=== PATIENT | female | born 2000 | race Caucasian/White ===

== ENCOUNTER 2024-09-09 18:00 | Emergency (ER) | payer OTHER, SELFPAY ==
[2024-09-09 18:04] VITALS: BP 154/93
--- NOTE | 2024-09-09 19:26 | ED.GENMED ---
History of Present Illness
General
Chief Complaint: Cold/Flu/URI Symptoms
Source: patient and family
Time Seen by Provider: 09/09/24 19:13
History of Present Illness
History of Present Illness:
24-year-old female with no significant past medical history presenting to the emergency department for evaluation after she started developing fevers on Tuesday evening which developed into sore throat, cough, body aches, fatigue, side pain on the
left, 1 episode of vomiting yesterday and diminished p.o. intake. Patient went to her primary care on Tuesday where they felt her symptoms were likely viral. Patient did 2 COVID test at home which were negative and at the primary care's office they
did a flu test which was negative. She has had fevers with Tmax of around 103. Last dose of Tylenol today was around 4 PM. No known sick contacts, recent travel or recent antibiotics.
Past History
Past History
ED Past Medical History: None
ED Past Surgical History: None
Social History
Tobacco: Non-smoker
Alcohol: None
Drug: None
Personal: Single
Living: with family
Review of Systems
Review of Systems
All Other Systems: ROS reviewed and negative except as documented in HPI and ROS
Phy Exam
Physical Exam
Physical Exam:
GENERAL: Alert , in no apparent distress
HEAD: NCAT
EYE: conjunctiva clear
NECK: Supple, no significant adenopathy.
ENT: mmm.
CARDIAC: Tachycardic rate and rhythm
LUNGS: Clear breath sounds bilaterally, no acute respiratory distress, no wheezes/rales/rhonchi
NEUROLOGICAL: Alert and oriented
SKIN: Hot to the touch and dry, skin intact.
MUSCULOSKELETAL: well perfused.
PSYCH: Normal and appropriate interaction.
Scores
Heart Failure Risk
Heart Failure Risk Score: Not Applicable
Heart Score for Chest Pain Patients
STEMI patient?: Not applicable
Withdrawal Assessment of Alcohol
Withdrawal Assessment Completed?: Not applicable
Course
Orders/Labs/Results
Orders:
Orders
09/09/24 18:08
Electrocardiogram (*1) Urgent
Reason for Study: Chest Pain
EKG- Treatment ONCE
09/09/24 19:14
Ibuprofen [Motrin] 600 mg PO NOW STA
Test Result ONCE
09/09/24 19:33
CR Chest - 2 Views Urgent
Comment:
Reason For Exam: cough, fever
09/09/24 19:38
Complete Blood Count/With Diff Urgent
Comprehensive Metabolic Panel Urgent
HCG, Serum Qualitative Screen Urgent
Monotest Urgent
Rapid Strep Group A Urgent
JOANNE Source: Throat/Pharynx
Specimen Description:
Date Specimen was Collected: 09/09/24
Time Specimen was Collected: 19:31
09/09/24 21:00
Doxycycline [Vibramycin] 100 mg PO NOW STA
Abnormal Lab Results
09/09/24
19:38
RBC 4.01 L 10^6/uL
(4.20-5.40)
Hct 35.3 L %
(37.0-47.0)
MCH 32.7 H pg
(27.0-31.0)
MCHC 37.1 H g/dL
(33.0-37.0)
RDW 11.2 L %
(11.5-14.5)
MPV 10.8 H fL
(7.4-10.4)
Abs Immat Gran (auto) 0.1 H 10^3/uL
(0-0.05)
Absolute Lymphs (auto) 0.6 L 10^3/uL
(1.2-3.4)
Immature Gran % 1.5 H %
(0-0.5)
Neutrophils % 84.6 H %
(42.2-75.2)
Lymphocytes % 9.8 L %
(20.5-51.1)
Potassium 3.3 L mmol/L
(3.5-5.1)
BUN 6 L mg/dl
(7-17)
Glucose 149 H mg/dl
(70-99)
09/09/24 19:38
09/09/24 19:38
Vital Signs
Initial and Last Documented VS:
Initial Vital Signs
Temp Pulse Resp BP Pulse Ox
102 F H 134 18 154/93 96
09/09/24 18:04 09/09/24 18:04 09/09/24 18:04 09/09/24 18:04 09/09/24 18:04
Last Documented Vital Signs
Temp Pulse Resp BP Pulse Ox
99.4 F 83 18 111/78 95
09/09/24 20:34 09/09/24 21:16 09/09/24 21:16 09/09/24 21:12 09/09/24 21:16
MDM/Problems Addressed
Differential Diagnosis Includes:
[place], COVID/flu, pneumonia, strep
MDM/Problems Addressed:
24-year-old female presenting to the emergency department for evaluation of fever and upper respiratory/viral-like symptoms since Tuesday evening. PCP performed viral testing at office which was negative. No other medications provided. Patient
febrile here. Exam otherwise reassuring. Will check labs including mono, strep test ordered. Motrin ordered for fever. Disposition pending
*Radiology
Radiology exam reviewed: preliminary read by ED provider (Left lower lobe pneumonia)
*Critical Care Note
Total Time (30-74mins, 75-104mins- exclusive of procedures): Not Applicable
Patient Management
Social determinants of health affecting care: Living situation and Strong social support
Escalation/DeEscalation of care consider admission/obs:
Patient's labs are reassuring. Chest x-ray does show a left lower lobe pneumonia. Vital signs much improved following Motrin. Will treat for community-acquired pneumonia with doxycycline. Motrin and Tylenol to be continued as needed for fevers.
Patient aware of return precautions to the ER. Stable for discharge home.
ED Attending Note
-
Portions of this chart may have been created with voice recognition software.� Occasional wrong word or��sound alike� substitutions may have occurred due to the inherent limitations of voice recognition software.
Discharge Plan
Departure
Patient Disposition: Home (Routine Discharge)
Date of Disposition: 09/09/24
Time of Disposition: 21:01
Patient with high blood pressure during this ER visit?: Yes
Discharge Problem:
Pneumonia
Instructions: Pneumonia
Prescriptions:
New
doxycycline hyclate 100 mg tablet
100 mg PO BID Qty: 19 0RF
No Action
fexofenadine-pseudoephedrine [Zunilda-D 24 Hour] 1 EACH tablet extended release 24 hr
1 ea PO DAILYPRN PRN (Reason: allergies)
Referrals:
Divya Gutiérrez PA-C [Family Provider] -
Stand Alone Forms: Return to Work
Interventions
Interventions:
*Risk Screen - Suicide Last Done: 09/09/24 18:04
*General Assessment Last Done: 09/09/24 18:04
*Neglect/Abuse Screening Last Done: 09/09/24 19:42
ED- Fall Risk Assessment Last Done: 09/09/24 21:17
*ED COVID-19 Vaccine History Last Done: 09/09/24 19:42
*Nursing Disposition Last Done: 09/09/24 21:17
ED- Pulmonary Assessment Last Done: 09/09/24 19:41
Discharge Date and Time
Discharge Date/Time: 09/09/24 21:17
Print Language: AZERI
[2024-09-09] MEDS: MOTRIN 600 MG PO (19:30)
[2024-09-09 19:57] LABS: Monotest Negative (Negative)
[2024-09-09 20:04] LABS: HCG, Serum Qualitative Screen Negative
[2024-09-09 20:08] LABS: ALT (SGPT) 20 U/L (0-35); AST (SGOT) 31 U/L (14-36); Albumin 4.4 g/dl (3.5-5.0); Alkaline Phosphatase 56 U/L (38-126); Blood Urea Nitrogen 6 mg/dl (7-17); Calcium 9.1 mg/dl (8.4-10.2); Carbon Dioxide 23 mmol/L (22-30); Chloride 102 mmol/L (98-107); Glucose 149 mg/dl (70-99); Potassium 3.3 mmol/L (3.5-5.1); Sodium 139 mmol/L (135-145); Total Bilirubin 0.5 mg/dl (0.2-1.3); Total Protein 7.1 g/dl (6.3-8.2); eGFR > 60.00
[2024-09-09 20:16] LABS: % Basophils 0.2 % (0-2); % Immature Granulocytes 1.5 % (0-0.5); % Lymphocytes 9.8 % (20.5-51.1); % Monocytes 3.9 % (1.7-9.3); % Neutrophils 84.6 % (42.2-75.2); Absolute Immature Granulocytes 0.1 10^3/uL (0-0.05); Absolute Lymphocytes 0.6 10^3/uL (1.2-3.4); Absolute Monocytes 0.2 10^3/uL (0.1-0.6); Absolute Neutrophils 5.2 10^3/uL (1.4-6.5); Hematocrit 35.3 % (37.0-47.0); Hemoglobin 13.1 g/dL (12.0-16.0); Mean Corp Hgb Conc. 37.1 g/dL (33.0-37.0); Mean Corpuscular Hgb 32.7 pg (27.0-31.0); Mean Platelet Volume 10.8 fL (7.4-10.4); Nucleated Red Blood Cells % 0 %; Platelet Count 171 10^3/uL (130-400); Red Blood Cell Count 4.01 10^6/uL (4.20-5.40); Red Cell Dist. Width 11.2 % (11.5-14.5); White Blood Cell Count 6.1 10^3/uL (4.8-10.8)
[2024-09-09] MEDS: VIBRAMYCIN 100 MG PO (21:11)
[2024-09-09 21:12] VITALS: BP 111/78
== END 2024-09-09 21:17 | disposition home or self-care (01) ==
LOC: EMR 18:00
PROVIDERS: Physician Assistant Medical; EMERGENCY PHYSICIAN Student in an Organized Health Care Education/Training Program; FAMILY PHYSICIAN Physician Assistant Medical
DX: J18.9 Pneumonia, unspecified organism (principal); R03.0 Elevated blood-pressure reading, without diagnosis of hypertension
CPT/HCPCS: 99285; 71046; 80053; 84703; 85025; 86308; 87070; 87880; 93005